=== PATIENT | female | born 1975 | race Caucasian/White ===

== ENCOUNTER 2020-02-28 21:02 | Emergency (ER) | payer BC, OTHER ==
[2020-02-28] MEDS ORDERED: Sodium Chloride 0.9% 1,000 ML IV ONE (21:17)
[2020-02-28] MEDS ORDERED: Sodium Chloride 0.9% 10 ML Syringe FLUSH PRN (21:17)
--- NOTE | 2020-02-28 21:25 | EDM.PDOC ---
ED HPI GENERAL MEDICAL PROBLEM - General Chief Complaint: Cardiovascular Problem Stated Complaint: HEART RATE FAST Time Seen by Provider: 02/28/20 21:10 Source of Information: Reports: Patient, Old Records, RN Notes Reviewed History Limitations: Reports: No Limitations - History of Present Illness INITIAL COMMENTS - FREE TEXT/NARRATIVE: Patient is a 44-year-old female who presents to the ED for the evaluation of her fast heart rate. Patient states that she has a history of this normally, when she gets dehydrated or has anxiety. She did take her prescribed Ativan 1/2-hour prior to coming to the ER, and states has not really helped much. Patient notes that she is making a long car trip, and [place] She made her son bring her to the ER here for evaluation before they got in the car for too long car ride. Patient states she does not get shortness of breath with the fast heart rate. She notes this is been anywhere in the low 100 to 125 bpm at home. She states most time she can do vagal maneuvers and get the heart rate down. But she states this time she just was not feeling good so she come to the ER for management. She denies any chest pain, fever/chills, shortness of breath, has a mild dry cough, but nothing out of the ordinary for her. Patient with history of anxiety, takes Zoloft for depression, Ativan for breakthrough anxiety, and states she takes Phenergan for nausea relief as well as she gets nausea quite often. She states that her last dose of this was this morning. - Related Data Allergies Allergy/AdvReac Type Severity Reaction Status Date / Time No Known Allergies Allergy Verified 02/28/20 21:12 Home Meds: Home Meds LORazepam 1 mg PO TID PRN 09/07/17 [History] Nitroglycerin [Nitrostat] 1 tab SL Q5H PRN 09/07/17 [History] Promethazine [Phenergan] 25 tab PO Q6HR PRN 09/07/17 [History] Warfarin [Coumadin] 10 mg PO ASDIRECTED 09/07/17 [History] Aspirin 81 mg PO DAILY 12/30/17 [History] Magnesium Oxide [Magnesium] 400 mg PO DAILY 12/30/17 [History] Metoprolol Succinate 25 mg PO BID 12/30/17 [History] Pantoprazole Sodium 40 mg PO DAILY 12/30/17 [History] Sertraline [Zoloft] 200 mg PO DAILY 12/30/17 [History] Cyanocobalamin (Vitamin B12) [Vitamin B12] 1 cap PO DAILY 01/02/19 [History] Furosemide 40 mg PO DAILY 02/28/20 [History] Warfarin [Coumadin] 5 mg PO ASDIRECTED 02/28/20 [History] Past Medical History Cardiovascular History: Reports: Hypertension, Pacemaker Other Cardiovascular History: cardiac arrest Respiratory History: Reports: PE Gastrointestinal History: Reports: [employer] History: Reports: Psychiatric History: Reports: Anxiety, Depression Endocrine/Metabolic History: Reports: Obesity/BMI 30+ Hematologic History: Reports: Anemia, Iron Deficiency - Past Surgical History HEENT Surgical History: Reports: Oral Surgery Cardiovascular Surgical History: Reports: Valve Replacement, Other (See Below) Other Cardiovascular Surgeries/Procedures: Open heart sx Female Surgical History: Reports: Tubal Ligation Social & Family History - Family History Family Medical History: Noncontributory - Caffeine Use Caffeine Use: Reports: None Caffeine Use Comment: 2 cups daily ED ROS GENERAL - Review of Systems Review Of Systems: Comprehensive ROS is negative, except as noted in HPI. ED EXAM, GENERAL - Physical Exam Exam: See Below Exam Limited By: No Limitations General Appearance: Alert, WD/WN, No Apparent Distress, Anxious Eye Exam: Bilateral Eye: EOMI, Normal Inspection, PERRL Throat/Mouth: Normal Inspection, Normal Lips, Normal Teeth, Normal Gums, Normal Oropharynx (mildly dry oral mucosa), Normal Voice, No Airway Compromise Head: Atraumatic, Normocephalic Neck: Normal Inspection Respiratory/Chest: No Respiratory Distress, Lungs Clear, Normal Breath Sounds, No Accessory Muscle Use, Chest Non-Tender Cardiovascular: Normal Peripheral Pulses, No Edema, No Murmur, Tachycardia (sinus tachy at 112-115 on telemetry, few PVCs noted) Peripheral Pulses: 3+: Radial (L), Radial (R) GI/Abdominal: Normal Bowel Sounds, Soft, Non-Tender, No Distention, No Mass Back Exam: Normal Inspection Extremities: Normal Inspection, Normal Capillary Refill Neurological: Alert, Oriented, Normal Cognition, No Motor/Sensory Deficits Psychiatric: Normal Affect, Normal Mood, Anxious (slightly) Skin Exam: Warm, Dry, Intact, Normal Color, No Rash EKG INTERPRETATION EKG Date: 02/28/20 Time: 21:29 Rhythm: NSR (sinus tachycardia) Rate (Beats/Min): 110 Raysal: LAD-Left Raysal Deviation P-Wave: Present QRS: Normal ST-T: Depressed (Minimal ST depression, noted V2, and then in V4, V5 and V6) QT: Prolonged (489) Comparison: No Change EKG Interpretation Comments: EKG reviewed by myself and Dr. Short, he had a hard time finding the P waves, would agree that is either a sinus tach or ectopic atrial tachycardia. There is a left anterior fascicular block present, EKG was compared to an EKG done at previous ER visit at a different facility, from 04/2019 and demonstrates no major changes Course - Vital Signs Last Recorded V/S: Last Vital Signs Temp 97.5 F 02/28/20 21:09 Pulse 116 H 02/28/20 21:09 Resp 18 02/28/20 21:09 BP 151/90 H 02/28/20 21:09 Pulse Ox 98 02/28/20 21:09 - Orders/Labs/Meds Orders: Active Orders 24 hr Category Date Time Status EKG Documentation Completion [RC] STAT Care 02/28/20 21:10 Ordered Peripheral IV Care [RC] . DIRECTED Care 02/28/20 21:18 Ordered Sodium Chloride 0.9% [Saline Flush] Med 02/28/20 21:17 Ordered 10 ml FLUSH ASDIRECTED PRN Peripheral IV Insertion Adult [OM.PC] Stat Oth 02/28/20 21:17 Ordered Medication Orders Sodium Chloride (Saline Flush) 10 ml FLUSH ASDIRECTED PRN PRN Reason: Keep Vein Open Last Admin: 02/28/20 21:49 Dose: 10 ml Documented by: DEX Labs: Laboratory Tests 02/28/20 02/28/20 02/28/20 Range/Units 21:41 21:41 21:45 WBC 8.02 (3.98-10.04) K/mm3 RBC 4.02 (3.98-5.22) M/mm3 Hgb 10.8 L (11.2-15.7) gm/dl Hct 34.8 (34.1-44.9) % MCV 86.6 (79.4-94.8) fl MCH 26.9 (25.6-32.2) pg MCHC 31.0 L (32.2-35.5) g/dl RDW Std Deviation 46.6 H (36.4-46.3) fL Plt Count 356 (182-369) K/mm3 MPV 9.3 L (9.4-12.3) fl Neut % (Auto) 76.5 H (34.0-71.1) % Lymph % (Auto) 15.1 L (19.3-51.7) % [place] % (Auto) 6.7 (4.7-12.5) % Eos % (Auto) 1.2 (0.7-5.8) Baso % (Auto) 0.4 (0.1-1.2) % Neut # (Auto) 6.13 (1.56-6.13) K/mm3 Lymph # (Auto) 1.21 (1.18-3.74) K/mm3 [place] # (Auto) 0.54 H (0.24-0.36) K/mm3 Eos # (Auto) 0.10 (0.04-0.36) K/mm3 Baso # (Auto) 0.03 (0.01-0.08) K/mm3 PT 23.5 H (9.7-12.0) SECONDS INR 2.26 Sodium 139 (136-145) mEq/L Potassium 2.9 L (3.5-5.1) mEq/L Chloride 101 (98-107) mEq/L Carbon Dioxide 27 (21-32) mEq/L Anion Gap 13.9 (5-15) BUN 13 (7-18) mg/dL Creatinine 1.3 H (0.55-1.02) mg/dL Est Cr Clr Drug Dosing 52.58 mL/min Estimated GFR (MDRD) 44 (>60) mL/min BUN/Creatinine Ratio 10.0 L (14-18) Glucose 162 H (74-106) mg/dL Calcium 9.3 (8.5-10.1) mg/dL Magnesium 1.8 (1.8-2.4) mg/dl Total Bilirubin 0.7 (0.2-1.0) mg/dL AST 27 (15-37) U/L ALT 32 (14-59) U/L Alkaline Phosphatase 78 (46-116) U/L Total Protein 8.4 H (6.4-8.2) g/dl Albumin 4.4 (3.4-5.0) g/dl Globulin 4.0 gm/dL Albumin/Globulin Ratio 1.1 (1-2) Meds: Medications Generic Name Dose Route Start Last Admin Trade Name Haleigh PRN Reason Stop Dose Admin Sodium Chloride 10 ml 02/28/20 21:17 02/28/20 21:49 Saline Flush FLUSH 10 ml ASDIRECTED PRN Administration Keep Vein Open Discontinued Medications Generic Name Dose Route Start Last Admin Trade Name Haleigh PRN Reason Stop Dose Admin Sodium Chloride 1,000 mls @ 999 mls/hr 02/28/20 21:17 02/28/20 21:49 Normal Saline IV 02/28/20 22:17 999 mls/hr ONETIME ONE Administration Lorazepam 1 mg 02/28/20 21:33 02/28/20 21:49 Ativan IVPUSH 02/28/20 21:34 1 mg ONETIME ONE Administration Potassium Chloride 40 meq 02/28/20 22:23 02/28/20 22:35 Klor-Con M20 PO 02/28/20 22:24 40 meq ONETIME ONE Administration - Re-Assessments/Exams Free Text/Narrative Re-Assessment/Exam: 02/28/20 21:24 Patient presents to the ED for the evaluation of her fast heart rate, will check basic labs, give her some IV fluids in the meantime. We will also check EKG to rule out any other abnormalities. 02/28/20 22:23 EKG was over read by Dr. Soares, he sees no obvious acute ischemic changes. Labs demonstrate a mildly low potassium at 2.9, she will be given 40 mEq p.o. potassium for this. Patient was given 1 mg Ativan for management. Heart rate is down into the 100s. We will discharge her home with general recommendations. 02/28/20 22:52 I did let the patient know her lab values, and she was worried about her INR as she on coumadin, I have ordered an PT/INR to see what her levels are. 02/28/20 22:54 INR does appear to be therapeutic, 2.26. Departure - Departure Time of Disposition: 22:24 Disposition: Home, Self-Care 01 Condition: Good Clinical Impression: Heart rate fast, Hypokalemia Instructions: Sinus Tachycardia Referrals: PCP,Not In Area [Primary Care Provider] - Forms: ED Department Discharge Additional Instructions: You were evaluated in the ER today regarding your fast heart rate. Labs did reveal a mildly low potassium at 2.9, you were given supplementation in the ER for this, along with some IV fluids. No other abnormalities were identified by lab standards. INR today's visit was 2.26, which appears to be within therapeutic limits for your dose of Coumadin, do not make any change in your Coumadin dosing. It is likely that some of this could be due to slight dehydration and anxiety. Please continue to take your anxiety medications as previously prescribed. Recommend you try to increase your oral fluid intake, and incorporate some fluids like Gatorade and or Powerade for further management. Please monitor your symptoms as needed, and return to the ER at any time if symptoms change or worsen. Sepsis Event Note (ED) - Evaluation Sepsis Screening Result: No Definite Risk - Focused Exam Vital Signs: Vital Signs Temp Pulse Resp BP Pulse Ox 02/28/20 21:09 97.5 F 116 H 18 151/90 H 98 - My Orders Last 24 Hours: My Active Orders 02/28/20 21:10 EKG Documentation Completion [RC] STAT 02/28/20 21:17 Sodium Chloride 0.9% [Saline Flush] 10 ml FLUSH ASDIRECTED PRN Peripheral IV Insertion Adult [OM.PC] Stat 02/28/20 21:18 Peripheral IV Care [RC] . DIRECTED - Assessment/Plan Last 24 Hours: My Active Orders 02/28/20 21:10 EKG Documentation Completion [RC] STAT 02/28/20 21:17 Sodium Chloride 0.9% [Saline Flush] 10 ml FLUSH ASDIRECTED PRN Peripheral IV Insertion Adult [OM.PC] Stat 02/28/20 21:18 Peripheral IV Care [RC] . DIRECTED
[2020-02-28] MEDS ORDERED: LORazepam 2 MG/ML SDV IVPUSH ONE (21:33)
[2020-02-28] MEDS ORDERED: Potassium Chloride 20 MEQ Tab.ER PO ONE ×2 (22:23→23:02)
== END 2020-02-28 23:11 | disposition home or self-care (01) ==
LOC: JD.ED 21:02
DX: E87.6 Hypokalemia (principal); R00.0 Tachycardia, unspecified; I10 Essential (primary) hypertension; K21.9 Gastro-esophageal reflux disease without esophagitis; F41.9 Anxiety disorder, unspecified; F32.9 Major depressive disorder, single episode, unspecified; E66.9 Obesity, unspecified; Z68.39 Body mass index [BMI] 39.0-39.9, adult; Z79.899 Other long term (current) drug therapy; Z79.82 Long term (current) use of aspirin
CPT/HCPCS: 36415; 80053; 83735; 85025; 85610; 93005; 96374; 99285; A9270; J2060; J7030; 93010; 99284